=== PATIENT | male | born 1960 | race Caucasian/White ===

== ENCOUNTER 2017-11-23 13:52 | Inpatient (IN) | payer BC ==
[~2017-11-23] VITALS: Ht 177.8 cm; Wt 110.7 kg
[~2017-11-23 13:52] MED LIST: CITALOPRAM HBR20 MG PO; LOSARTAN POTASS25 MG PO
[2017-11-23] MEDS ORDERED: KETOROLAC TROMETHAMINE 30 MG/ML VIAL IV STA (14:12)
[2017-11-23] MEDS ORDERED: ONDANSETRON HCL INJ 2 MG/ML VIAL IV STA (14:12)
[2017-11-23] MEDS ORDERED: MORPHINE SULFATE 5 MG/ML VIAL IV ONE (14:15)
[2017-11-23] MEDS ORDERED: MORPHINE SULFATE 2 MG/ML SYR ONE (14:26)
[2017-11-23 14:33] LABS: BASOPHILS # (AUTO) 0.1 (0.0-0.1); BASOPHILS % 0.6 % (0.0-1.0); EOSINOPHILS # (AUTO) 0.1 (0.0-0.4); EOSINOPHILS % 0.7 % (0.0-6.0); HEMATOCRIT 45.9 % (38.2-49.6); HEMOGLOBIN 15.7 g/dL (14.0-18.0); LYMPHOCYTES # (AUTO) 1.2 (1.0-3.2); LYMPHOCYTES % 10.7 % (18.0-39.1); MEAN CORPUSCULAR HEMOGLOBIN 30.3 pg (28-32); MEAN CORPUSCULAR HGB CONC 34.2 g/dL (31-35); MEAN CORPUSCULAR VOLUME 88.6 fL (81-99); MONOCYTES # (AUTO) 1.4 (0.2-0.8); MONOCYTES % 12.6 % (4.4-11.3); NEUTROPHILS # (AUTO) 8.2 (2.1-6.9); NEUTROPHILS % 74.9 % (38.7-80.0); PLATELET COUNT 218 x10e3/uL (140-360); RED BLOOD COUNT 5.18 x10e6/uL (4.3-5.7); RED CELL DISTRIBUTION WIDTH 13.2 % (11.7-14.4)
[2017-11-23 15:12] LABS: ERYTHROCYTE SEDIMENTATION RATE 16 mm/hr (0-13)
[2017-11-23 15:13] LABS: ALANINE AMINOTRANSFERASE 22 IU/L (0-55); ALBUMIN 3.8 g/dL (3.5-5.0); ALBUMIN/GLOBULIN RATIO 1.1 (0.8-2.0); ALKALINE PHOSPHATASE 65 IU/L (40-150); BLOOD UREA NITROGEN 11 mg/dL (7-26); BUN/CREATININE RATIO 11 (6-25); CALCIUM 10.1 mg/dL (8.4-10.2); CHLORIDE 105 mmol/L (98-107); CREATINE KINASE 48 IU/L (30-200); EST GLOMERULAR FILTRATION RATE > 60 ML/MIN (60-); GLUCOSE 97 mg/dL (74-118); POTASSIUM 4.2 mmol/L (3.5-5.1); SODIUM 141 mmol/L (136-145)
[2017-11-23 15:49] LABS: CARBON DIOXIDE 28 mmol/L (22-29)
[2017-11-23 15:50] LABS: ANION GAP 12.2 mmol/L (8-16)
[2017-11-23] MEDS ORDERED: DEXAMETHASONE SOD PHOS 10 MG/1 ML VIAL IV ONE (16:00)
[2017-11-23] MEDS ORDERED: GABAPENTIN300 MG PO (16:11)
[2017-11-23] MEDS ORDERED: SODIUM CHLORIDE FLUSH 10 ML SYR INJ PRN (16:30)
[2017-11-23] MEDS ORDERED: KETOROLAC TROMETHAMINE 30 MG/ML VIAL IM PRN (16:30)
[2017-11-23] MEDS: PIPER-TAZ 3.375 GM 50 ML IV SCH ×2 (16:37→23:45)
[2017-11-23] MEDS ORDERED: MORPHINE SULFATE 2 MG/ML SYR IV PRN (17:00)
[2017-11-23] MEDS: VANCOMYCIN 1GM/NS 250 ML 250 ML IV SCH (17:03)
[2017-11-23] MEDS: ONDANSETRON HCL INJ 2 MG/ML VIAL IV PRN ×2 (17:37→23:45)
[2017-11-23] MEDS: MORPHINE SULFATE INJ 4 MG/ML INJ IV PRN ×2 (17:37→23:45)
[2017-11-23 18:49] VITALS: BP 149/89
[2017-11-23 19:30] VITALS: BP 142/87
[2017-11-23 20:00] VITALS: BP 142/87
[2017-11-23] MEDS ORDERED: SODIUM CHLORIDE 0.9% 250ML 250 ML ONE (23:34)
[2017-11-24] VITALS: BP 144/75
[2017-11-24 04:00] VITALS: BP 133/73
[2017-11-24] MEDS: VANCOMYCIN 1GM/NS 250 ML 250 ML IV SCH (04:03)
[2017-11-24 06:14] LABS: BASOPHILS % 0.2 % (0.0-1.0); HEMATOCRIT 41.2 % (38.2-49.6); HEMOGLOBIN 14.2 g/dL (14.0-18.0); LYMPHOCYTES # (AUTO) 0.7 (1.0-3.2); LYMPHOCYTES % 6.3 % (18.0-39.1); MEAN CORPUSCULAR HEMOGLOBIN 29.8 pg (28-32); MEAN CORPUSCULAR HGB CONC 34.5 g/dL (31-35); MEAN CORPUSCULAR VOLUME 86.4 fL (81-99); MONOCYTES # (AUTO) 0.4 (0.2-0.8); NEUTROPHILS # (AUTO) 9.7 (2.1-6.9); NEUTROPHILS % 88.9 % (38.7-80.0); PLATELET COUNT 222 x10e3/uL (140-360); RED BLOOD COUNT 4.77 x10e6/uL (4.3-5.7); RED CELL DISTRIBUTION WIDTH 12.9 % (11.7-14.4)
[2017-11-24 07:02] LABS: ALANINE AMINOTRANSFERASE 62 IU/L (0-55); ALBUMIN 3.1 g/dL (3.5-5.0); ALKALINE PHOSPHATASE 67 IU/L (40-150); BLOOD UREA NITROGEN 15 mg/dL (7-26); BUN/CREATININE RATIO 15 (6-25); CHLORIDE 104 mmol/L (98-107); CREATININE, SERUM 0.98 mg/dL (0.72-1.25); EST GLOMERULAR FILTRATION RATE > 60 ML/MIN (60-); GLUCOSE 152 mg/dL (74-118); POTASSIUM 4.1 mmol/L (3.5-5.1); SODIUM 135 mmol/L (136-145)
[2017-11-24] MEDS: PIPER-TAZ 3.375 GM 50 ML IV SCH (07:45)
[2017-11-24 08:00] VITALS: BP 142/83
[2017-11-24 08:28] LABS: CALCIUM 8.6 mg/dL (8.4-10.2); CARBON DIOXIDE 16 mmol/L (22-29)
[2017-11-24 08:32] LABS: ANION GAP 19.1 mmol/L (8-16)
[2017-11-24] MEDS ORDERED: BUPIVACAINE HCL 0.5% INJ 30 ML VIAL INJ ONE (09:35)
[2017-11-24 11:09] VITALS: BP 117/71
--- NOTE | 2017-11-24 15:11 | Operative Report ---
DATE OF PROCEDURE: November 24, 2017 PREOPERATIVE DIAGNOSIS: Left de Quervain tenosynovitis. POSTOPERATIVE DIAGNOSES 1. Left de Quervain tenosynovitis. 2. Extensor tenosynovitis. PROCEDURES PERFORMED 1. Left de Quervain release. 2. Extensor tenosynovectomy. ANESTHESIA: General. HISTORY: The patient is a 57-year-old [id number] male who has de Quervain tenosynovitis that is recalcitrant to conservative measures. The risks, benefits, and alternatives to treatment were discussed with the patient, and they are prepared to undergo the procedures outlined. DESCRIPTION OF PROCEDURE: The patient was brought to the operating theater. After the induction of adequate general inhalation anesthesia, the patient was prepped and draped in a supine position. A time out was performed by the entire operating room team. An oblique incision was marked out over the left 1st dorsal compartment. The left upper extremity was exsanguinated and a tourniquet inflated to a pressure of 250 mmHg. The incision was made through the skin and subcutaneous tissue, and all the venous tributaries were controlled with the bipolar cautery. Efforts were made to identify the branches of the radial sensory nerve and retract and protect them as well as possible. The dissection continued directly onto the dorsal aspect of the 1st dorsal compartment. The 1st dorsal compartment was noted to be thickened and was then incised longitudinally, freeing up the extensor tendons. Note was made of an accessory compartment, which housed the EPB tendon separately. This compartment was released as well, and the tendons were then placed through a range of motion. There was noted to be good gliding within the 1st dorsal compartment of both tendon groups. Proliferative extensor tenosynovium was then excised from both tendons, and the intervening septum between the APL and EPB tendons was removed as well. The wound was copiously irrigated with bacteriostatic saline and closed with a 5-0 nylon in an interrupted horizontal mattress fashion. A Marcaine field block was performed at the operative site. The tourniquet was deflated, and all the fingers pinked up nicely. A sterile bulking conforming bandage was applied to the hand and wrist and distal forearm. A fiberglass splint was fashioned as a dorsally based thumb spica and held in place with a loosely wrapped Sidney wrap. The patient tolerated the procedure well and was brought to the recovery room in satisfactory condition and discharged with a postoperative instruction sheet as well as a followup appointment. Job#: [id number] EV
--- NOTE | 2017-11-24 17:03 | History and Physical ---
PRIMARY CARE PROVIDER: Dr. Rozina Grant. TANK STORAGE SUPERVISOR: Dr. Jose Suarez. CHIEF COMPLAINT: The patient complained of severe left wrist and arm pain. HISTORY OF PRESENT ILLNESS: The patient is a 57-year-old male basically with left wrist and hand pain severely, who came to see Dr. Jose Suarez's office and subsequently sent to the emergency room. The patient was placed on observation in the emergency room for further evaluation and treatment of the left hand and wrist pain. The patient underwent multiple vascular tests, was otherwise unremarkable. The lab work was otherwise stable as well. There is no real significant redness. However, the patient was having significant pain with movement. The patient was to seen by me. He was evaluated in the emergency room and placed in observation for Dr. Suarez to care for this patient. Patient is known to Dr. Suarez. Patient is otherwise stable. This morning the patient went up to the operating room prior to my arrival. In the operating room, operative note showed that the patient had left de Quervain synovitis with extensor tenosynovitis. The patient had left de Quervain release procedures done with extensor tenosynovectomy. Postoperatively the patient was stable throughout and the patient's pain has improved. The patient was cleared by Dr. Suarez to go home, and the patient was able to tolerate all his treatment and he wanted to go home prior to being seen by me. Patient was subsequently discharged home. Resume home medications. A fiberglass splint was placed. The patient is stable. All instructions were given for the patient to follow up with Dr. Jose Suarez as an outpatient care. The patient was stable and discharged home. Job#: [id number] EV
[2017-11-24] MEDS ORDERED: LIDOCAINE HCL 2% LOCAL INJ 5 ML SDV VIAL INJ ONE (18:26)
[2017-11-24] MEDS ORDERED: SEVOFLURANE INHAL SOLN 250 ML PEN BTL ONE (18:26)
[2017-11-24] MEDS ORDERED: ONDANSETRON HCL INJ 2 MG/ML VIAL ONE (18:26)
[2017-11-24] MEDS ORDERED: PROPOFOL IV EMULSION 10 MG/ML 20 ML VIAL ONE (18:26)
[2017-11-24] MEDS ORDERED: DEXAMETHASONE SOD PHOS INJ 4 MG/ML VIAL ONE (18:26)
[2017-11-24] MEDS ORDERED: KETOROLAC TROMETHAMINE 30 MG/ML VIAL ONE (18:26)
[2017-11-24] MEDS ORDERED: FENTANYL CITRATE/PF 100MCG/2 ML INJ ONE (20:09)
[2017-11-24] MEDS ORDERED: MIDAZOLAM HCL 2 MG/2 ML VIAL ONE (20:09)
--- NOTE | 2017-11-25 00:38 | Discharge Summary ---
SPRINKLER TRUCK DRIVER: Dr. Jose Suarez Patient discharged on November 24, 2017. Patient is postoperative day today with left de Quervain release and extensor tenosynovectomy. Patient was stable postoperatively. Patient's pain is better controlled. He is stable. Dr. Suarez has cleared for the patient to go home. Follow up with him next week. The patient was stable and discharged home. Discussed with RN. Resume home medications. Job#: [id number]
--- NOTE | 2018-02-11 13:45 | Consultation ---
DATE OF CONSULTATION: November 23, 2017 The patient is a 57-year-old [id number] male who was seen on November 23, 2017, in the office. The patient had extreme pain in the left forearm area. I was unable to examine the patient adequately in the office, and I felt that the patient needed to be seen in the emergency room to rule out a possible compartment syndrome or effort thrombosis. The patient left my office, went straightaway to the emergency room. The workup there included MRI testing and evaluation with the patient under sedation, and it was found that the patient had severe left de Quervain's tenosynovitis. The patient was then kept n.p.o. after midnight, and he was taken to the OR the following day, on November 24, for left de Quervain's tenovaginotomy. Job#: [id number] EV
== END 2017-11-24 14:00 | disposition home or self-care (01) | DRG 502 ==
LOC: ER 13:52 → ERHOLD 16:43 → MED/SURG3 18:47
PROVIDERS: ADMIT Internal Medicine; ATTEND Internal Medicine
PROC: 0LB60ZZ Excision of Left Lower Arm and Wrist Tendon, Open Approach (ICD-10-PCS; 2017-11-24)
PROC: 0LN60ZZ Release Left Lower Arm and Wrist Tendon, Open Approach (ICD-10-PCS; principal; 2017-11-24 09:00)
DX: M65.4 Radial styloid tenosynovitis [de Quervain] (principal)
CPT/HCPCS: 36415; 80053; 82550; 83605; 84550; 85025; 85651; 86140; 87040; 93931; 93971; 99284; J1100; J1885; J2001; J2250; J2270; J2405; J2543; J3370; J7050